=== PATIENT | male | born 1975 ===

== ENCOUNTER → 2017-01-29 | Outpatient (REF) ==
--- NOTE | 2017-01-29 10:25 | DI ---
EXAM: Two views of the chest. History: Annual physical screening chest radiograph Comparison: Chest radiograph 02/28/2015 Findings: Heart size is normal. No focal consolidation. No appreciable pleural fluid and no pneum othorax. No acute osseous abnormalities. Impression: No acute cardiopulmonary process.
== END ==
LOC: RAD 09:26
DX: Z02.89 Encounter for other administrative examinations (principal)